=== PATIENT | male | born 1995 | race African-American/Black ===

== ENCOUNTER 2018-03-27 16:04 | Emergency (ER) | payer OTHER ==
[2018-03-27] MEDS: IBUPROFEN 800 MG TAB PO (19:04)
== END 2018-03-27 19:33 | disposition home or self-care (01) ==
LOC: FTE 16:04
DX: M25.522 Pain in left elbow (principal)
CPT/HCPCS: 73080; 73080-LT; 99283-25

== ENCOUNTER 2019-01-10 04:57 | Emergency (ER) | payer OTHER ==
[2019-01-10] MEDS: IBUPROFEN 600 MG TAB PO (06:26)
[2019-01-10] MEDS: LIDOCAINE 2% (MDV) 20 ML INJ INJ (06:27)
[2019-01-10] MEDS: DIPHTH/TET/ACEL PERTUSS (ADULT) 0.5 ML VIAL IM* (06:27)
== END 2019-01-10 07:11 | disposition home or self-care (01) ==
LOC: FTE 04:57
DX: S61.213A Laceration without foreign body of left middle finger without damage to nail, initial encounter (principal); W26.0XXA Contact with knife, initial encounter; Y92.9 Unspecified place or not applicable; Z23 Encounter for immunization
CPT/HCPCS: 12001; 90471; 90715; 99283-25